=== PATIENT | female | born 1955 | race Caucasian/White ===

== ENCOUNTER 2019-02-05 12:14 | Emergency (ER) | payer MEDICARE, SELFPAY ==
[2019-02-05 12:22] VITALS: BP 139/78; PULSE 75; RESP 14; TEMP 36.5; O2SAT 100
--- NOTE | 2019-02-05 12:26 | DI.RAD.S_ITS ---
PROCEDURE: XR KNEE LT 3V INDICATIONS: fall yesterday, pain w/ twisting, radiates to lower leg. TECHNIQUE: 3 views of the knee were acquired. COMPARISON: None. FINDINGS: Bones: No fractures or dislocations. No suspicious bony lesions. Mild degenerative changes of the patellofemoral compartment are present. There may be a small joint body along the superior aspect of the knee on the lateral view. An enthesophyte is evident at the quadriceps tendon insertion on the patella. Soft tissues: No joint effusion. No suspicious soft tissue calcifications. IMPRESSION: No acute fracture of the knee. Dictated by: Casey Johnson M.D. on 02/05/2019 at 12:03 Approved by: Casey Johnson M.D. on 02/05/2019 at 12:03
[2019-02-05 13:51] VITALS: PULSE 68
--- NOTE | 2019-02-05 13:52 | PC.NURSE ---
CSM fully intact. No acute distress. Able to bear weight.
--- NOTE | 2019-02-05 14:11 | ED_ITS ---
HPI - Extremity Injury (Lower) <Coty Post PA-C - Last Filed: 02/05/19 20:53> General Chief Complaint: Extremity Injury, Lower Stated Complaint: Fell Lt knee pain Time Seen by Provider: 02/05/19 13:19 Source: patient Mode of arrival: ambulatory Limitations: no limitations History of Present Illness HPI Narrative: This 63-year-old female missed a step yesterday and twisted her left knee awkwardly pitching down between the steps, then landed on the grass. She states that she had pain right away with twisting the knee, not when she actually landed. She states that it was a bit sore yesterday, thought it was okay but used a walking stick when she was out in about, later she iced it, took Aleve and wrapped it and it seemed okay this morning. With walking on it however it feels heavy and quite painful with certain movements such as twisting or pivoting. She cannot tell that it is lack. She states that her foot was slightly sore yesterday but feels fine today. She denies any other contusion or injuries. Related Data Allergies Allergy/AdvReac Type Severity Reaction Status Date / Time No Known Drug Allergies Allergy Verified 02/05/19 12:26 Review of Systems <Coty Post PA-C - Last Filed: 02/05/19 20:53> Review of Systems ROS Unobtainable: All systems reviewed & are unremarkable except as noted in HPI and below PFSH <Coty Post PA-C - Last Filed: 02/05/19 20:53> Medical History (Updated 02/05/19 @ 14:27 by Coty Post PA-C) HTN (hypertension) (Chronic) Surgical History (Updated 02/05/19 @ 14:27 by Coty Post PA-C) Status post appendectomy (Resolved) Social History Smoking Status: Never smoker Social History Smoking Status: Never smoker Exam <Coty Post PA-C - Last Filed: 02/05/19 20:53> Narrative Exam Narrative: GENERAL APPEARANCE: Patient sitting comfortably, in no distress. LUNGS: Clear to auscultation bilaterally. HEART: Rate and rhythm regular without murmur, normal S1 and S2, no S3 or S4. MUSCULOSKELETAL: Left knee no effusion, no point tenderness over the joint line or patella. She has some tenderness lateral to the patella where there is ec chymoses. Full active range of motion nonweightbearing without tenderness. No tenderness over the lower leg, ankle, foot or toes, full range of motion. No obvious laxity with drawer testing, varus or valgus stress NEUROVASCULAR: Left foot warm and pink with intact 2+ pedal pulse, sensation grossly intact Initial Vital Signs Initial Vital Signs: Vital Signs Temperature 97.7 F 02/05/19 12:22 Pulse Rate 75 02/05/19 12:22 Respiratory Rate 14 02/05/19 12:22 Blood Pressure 139/78 02/05/19 12:22 Pulse Oximetry 100 02/05/19 12:22 <DO Marivel Perea Last Filed: 02/06/19 07:21> Initial Vital Signs Initial Vital Signs: Vital Signs Temperature 97.7 F 02/05/19 12:22 Pulse Rate 75 02/05/19 12:22 Respiratory Rate 14 02/05/19 12:22 Blood Pressure 139/78 02/05/19 12:22 Pulse Oximetry 100 02/05/19 12:22 Course <ACACIA Clayton Last Filed: 02/05/19 20:53> Orders Ordered: ED Orders 02/05/19 12:26 XR knee LT 3V Stat Vital Signs - 8 hr 02/05/19 13:51 02/05/19 14:26 Pulse Rate 71 Pulse Rate [Left Dorsalis Pedis] 68 Respiratory Rate 16 Blood Pressure [Left Arm] 124/70 Pulse Oximetry 98 <DO Marivel Perea Last Filed: 02/06/19 07:21> Orders Ordered: ED Orders 02/05/19 12:26 XR knee LT 3V Stat Vital Signs - 8 hr 02/05/19 13:51 02/05/19 14:26 Pulse Rate 71 Pulse Rate [Left Dorsalis Pedis] 68 Respiratory Rate 16 Blood Pressure [Left Arm] 124/70 Pulse Oximetry 98 MDM - Extremity Injury (Lower) <ACACIA Clayton Last Filed: 02/05/19 20:53> Imaging Data knee: Radiologist's impression: [address] [address] XRay Report Signed Patient: Maru Posada#: [id number] : 4Acct:[id number] Age/Sex: 63 / FDate of Service: 02/05/19 Loc: ED Accession Number: [id number] Procedure: XR knee LT 3V Ordering Provider: Juliette Mccall D.O. PROCEDURE: XR KNEE LT 3V INDICATIONS: fall yesterday, pain w/ twisting, radiates to lower leg. TECHNIQUE: 3 views of the knee were acquired. COMPARISON: None. FINDINGS: Bones: No fractures or dislocations. No suspicious bony lesions. Mild degenerative changes of the patellofemoral compartment are present. There may be a small joint body along the superior aspect of the knee on the lateral view. An enthesophyte is evident at the quadriceps tendon insertion on the patella. Soft tissues: No joint effusion. No suspicious soft tissue calcifications. IMPRESSION: No acute fracture of the knee. Dictated by: Casey Johnson M.D. on 02/05/2019 at 12:03 Approved by: Casey Johnson M.D. on 02/05/2019 at 12:03 Discharge Plan Departure Patient Disposition: Home Clinical Impression: Contusion of knee and lower leg Qualifiers: Encounter type: initial encounter Laterality: left Qualified Code(s): S80.02XA - Contusion of left knee, initial encounter Left knee sprain Qualifiers: Encounter type: initial encounter Involved ligament of knee: unspecified ligament Qualified Code(s): S83.92XA - Sprain of unspecified site of left knee, initial encounter Discharge Date/Time: 02/05/19 14:41 Interventions: ED Discharge Assessment Last Done: 02/05/19 14:39 Instructions: DI for Knee Sprain Activity Restrictions/Additional Instructions: As we talked about, the x-rays of your knee did not show low any broken bone today, however given the mechanism of injury, I do think you have sprained the knee, and it is possible that you have another soft tissue injury such as a meniscal tear. I think it is likely that this will improve on its own since you seemed to be having pain with pivoting type of movements but not instability in the knee. Please wear the knee immobilizer splint to help with stability and therefore pain. Please continue Aleve 1 tablet every 12 hours at least for the next couple of days, you can take up to 2 every 12 hours. Follow up with your primary care provider or specialist in a few days for recheck as often it is easier to do a more thorough knee examination as the acute pain improves. If you are not getting better, you may need a referral and further imaging studies. Please return to the ED in the interim if you have any acutely worsening symptoms as we discussed Referrals: Saran Barrera MD [Non-Staff] - <Juliette Mccall DO - Last Filed: 02/06/19 07:21> Cosign ED Attending Cheloature Attestation: I was immediately available in the department for consultation. Documentation has been reviewed. I agree with assessment and plan.
--- NOTE | 2019-02-05 14:25 | PC.NURSE ---
Full CSM. Given Nico wrap for use if needed. + pulses distal to injury.
[2019-02-05 14:26] VITALS: BP 124/70; PULSE 71; RESP 16; O2SAT 98
== END 2019-02-05 14:41 | disposition home or self-care (01) ==
PROVIDERS: Emergency Provider Internal Medicine
DX: S80.02XA Contusion of left knee, initial encounter (principal); S83.92XA Sprain of unspecified site of left knee, initial encounter; W10.8XXA Fall (on) (from) other stairs and steps, initial encounter
CPT/HCPCS: 73562; 99283